=== PATIENT | female | born 1980 | race Two or more races ===

== ENCOUNTER 2018-08-02 11:43 | Outpatient (CLI) | payer OTHER | END 2018-08-02 12:00 | disposition home or self-care (01) | LOC: MAMO-SONO 11:43 | DX: N60.11 Diffuse cystic mastopathy of right breast (principal); N60.12 Diffuse cystic mastopathy of left breast; Z80.3 Family history of malignant neoplasm of breast; Z12.31 Encounter for screening mammogram for malignant neoplasm of breast ==

== ENCOUNTER 2018-08-24 09:06 | Outpatient (CLI) | payer OTHER | END 2018-08-24 09:27 | disposition home or self-care (01) | LOC: SONOGRAMA 09:06 | DX: N60.11 Diffuse cystic mastopathy of right breast (principal); N60.12 Diffuse cystic mastopathy of left breast ==

== ENCOUNTER 2019-09-02 10:09 | Outpatient (CLI) | payer OTHER | END 2019-09-02 10:57 | disposition home or self-care (01) | LOC: SONOGRAMA 10:09 | DX: N60.02 Solitary cyst of left breast (principal); N60.11 Diffuse cystic mastopathy of right breast; N60.12 Diffuse cystic mastopathy of left breast ==